=== PATIENT | male | born 1975 | race African-American/Black ===

== ENCOUNTER 2016-10-14 18:18 | Emergency (ER) | payer OTHER ==
[~2016-10-14] VITALS: Ht 175.3 cm; Wt 107.3 kg
[~2016-10-14 18:18] MED LIST: ASPIRIN 81M81 MG/TA2 PO; NAPROSYN25 MG/ML PO; TYLENOL 325MG325 MG PO
[2016-10-14 18:24] VITALS: TEMP 97
[2016-10-14] MEDS ORDERED: CREATINE MONOHYDRATE (18:30)
[2016-10-14 20:14] VITALS: BP 140/103; PULSE 58
== END 2016-10-14 20:22 | disposition home or self-care (01) ==
LOC: COL.ER 18:18
DX: S06.0X0A Concussion without loss of consciousness, initial encounter (principal); W22.8XXA Striking against or struck by other objects, initial encounter